=== PATIENT | male | born 1960 | race Caucasian/White ===

== ENCOUNTER 2019-05-14 12:10 | Inpatient (IN) | payer OTHER ==
[~2019-05-14] VITALS: Ht 175.3 cm; Wt 52.2 kg
[2019-05-14] MEDS ORDERED: IV NORMAL SALINE 1000ML BAG 1,000 ML IV ONE (12:30)
[2019-05-14] MEDS ORDERED: methylPREDNISolone SOD SUCC PF 125 MG/2 ML VIAL. IV ONE (12:30)
[2019-05-14] MEDS ORDERED: IPRATRPIUM/ALBUTEROL 0.5/2.5MG 3 ML NEBU. NEB ONE (12:30)
[2019-05-14 12:36] LABS: BASO % 1 % (0-3); EOS % 0 % (0-3); HEMATOCRIT 43.5 % (39.0-53.0); HEMOGLOBIN 14.5 g/dL (13.0-17.5); LYMPH # 0.9 x10^3/uL (1.0-4.8); LYMPH % 13 % (24-48); MEAN CORPUSCULAR HEMOGLOBIN 32 pg (25-35); MEAN CORPUSCULAR HGB CONC 33 g/dL (31-37); MEAN CORPUSCULAR VOLUME 97 fL (79-100); MONO # 1.2 x10^3/uL (0.0-1.1); MONO % 17 % (0-9); NEUT # 4.9 x10^3/uL (1.8-7.7); NEUT % 70 % (31-73); PLATELET COUNT 161 x10^3/uL (140-400); RED BLOOD COUNT 4.47 x10^6/uL (4.30-5.70); RED CELL DISTRIBUTION WIDTH 13.6 % (11.5-14.5)
[2019-05-14 12:40] LABS: CALCIUM 8.6 mg/dL (8.5-10.1); CREATININE 0.9 mg/dL (0.7-1.3); GFR 86.4; POTASSIUM 3.6 mmol/L (3.5-5.1)
[2019-05-14 12:45] LABS: PROTHROMBIN TIME PATIENT 11.5 SEC (11.7-14.0)
[2019-05-14 12:46] LABS: ALBUMIN 3.6 g/dL (3.4-5.0); ALBUMIN/GLOBULIN RATIO 1.2 (1.0-1.7); TOTAL BILIRUBIN 0.3 mg/dL (0.2-1.0); TOTAL PROTEIN 6.7 g/dL (6.4-8.2)
--- NOTE | 2019-05-14 12:50 | RAD ---
PORTABLE CHEST 1V Clinical indications: Shortness of air. COMPARISON: December 17, 2014. Findings: Hyperinflation is seen consistent with COPD. Chronic interstitial lung disease is seen. No new lung infiltrate or pleural effusion or pneumothorax is seen. The heart size, pulmonary vasculature, mediastinum and both josé miguel are unremarkable. . Impression: COPD. No acute radiographic abnormality is seen. Electronically signed by: Esteban Jones MD (05/14/2019 12:47 PM) [facility]
[2019-05-14 12:57] LABS: INFLUENZA A PATIENT POSITIVE (NEGATIVE); INFLUENZA B PATIENT NEGATIVE (NEGATIVE)
--- NOTE | 2019-05-14 12:57 | PHYS DOC ---
Past Medical History Past Medical History: Cancer, COPD, Other Additional Past Medical Histor: bells palsy Past Surgical History: Cancer Surgery, Other Additional Past Surgical Histo: right ankle Smoking Status: Current Every Day Smoker Alcohol Use: None Drug Use: None Adult General Chief Complaint Chief Complaint: SHORTNESS OF BREATH HPI HPI Patient is a 58 year old male with history COPD, lung cancer, smoking, presented to ER today for evaluation of trouble breathing, cough, fever for the last 5 days. Patient is in remission of his TREATMENT. Last chemotherapy was one years ago. Patient continues to smoke, he is not on oxygen at home. Alma ent denies any chest pain. He denies any abdominal pain, no nausea vomiting. Review of Systems Review of Systems Constitutional: POSITIVE FOR fever or chills [] Eyes: Denies change in visual acuity, redness, or eye pain [] HENT: Denies nasal congestion or sore throat [] Respiratory: Positive for cough and shortness of breath [] Cardiovascular: No additional information not addressed in HPI [] GI: Denies abdominal pain, nausea, vomiting, bloody stools or diarrhea [] : Denies dysuria or hematuria [] Musculoskeletal: Denies back pain or joint pain [] Integument: Denies rash or skin lesions [] Neurologic: Denies headache, focal weakness or sensory changes [] Endocrine: Denies polyuria or polydipsia [] All other systems were reviewed and found to be within normal limits, except as documented in this note. Current Medications Current Medications Current Medications Medications (Trade) Dose Ordered Sig/Eugene Start Time Stop Time Status Last Admin Dose Admin Acetaminophen (Tylenol) 650 mg PRN Q4HRS PRN 05/14/19 13:30 05/15/19 13:29 Albuterol/ Ipratropium (Duoneb) 3 ml RTQID 05/14/19 16:00 05/15/19 15:59 Methylprednisolone Sodium Succinate (SOLU-Medrol 125MG VIAL) 125 mg 1X ONCE 05/14/19 12:30 05/14/19 12:31 DC 05/14/19 12:44 125 MG Ondansetron HCl (Zofran) 4 mg PRN Q8HRS PRN 05/14/19 13:30 05/15/19 13:29 Sodium Chloride 1,000 ml @ 75 mls/hr [id number] 05/14/19 13:28 2/23/20 13:27 Allergies Allergies Allergies Coded Allergies Type Severity Reaction Last Updated Verified No Known Drug Allergies 12/17/14 No Physical Exam Physical Exam Constitutional: Well developed, well nourished, mild acute distress, toxic appearance. [] HENT: Normocephalic, atraumatic, bilateral external ears normal, oropharynx moist, no oral exudates, nose normal. [] Eyes: PERRLA, EOMI, conjunctiva normal, no discharge. [] Neck: Normal range of motion, no tenderness, supple, no stridor. [] Cardiovascular: Sinus tachycardia, regular rhythm, no murmur [] Lungs & Thorax: Bilateral breath sounds with moderated inspiratory and expiratory wheezing, tachypnia, in moderate respiratory distress. Abdomen: Bowel sounds normal, soft, no tenderness, no masses, no pulsatile masses. [] Skin: Warm, dry, no erythema, no rash. [] Back: No tenderness, no CVA tenderness. [] Extremities: No tenderness, no cyanosis, no clubbing, ROM intact, no edema. [] Neurologic: Alert and oriented X 3, normal motor function, normal sensory function, no focal deficits noted. [] Psychologic: Affect normal, judgement normal, mood normal. [] Current Patient Data Vital Signs Vital Signs Date Time Temp Pulse Resp B/P (MAP) Pulse Ox O2 Delivery O2 Flow Rate FiO2 05/14/19 12:52 96 Room Air 05/14/19 12:29 98.4 97 20 169/81 (110) 98.4 Lab Values Laboratory Tests Test 05/14/19 12:25 05/14/19 12:26 05/14/19 12:39 White Blood Count 7.0 x10^3/uL (4.0-11.0) Red Blood Count 4.47 x10^6/uL (4.30-5.70) Hemoglobin 14.5 g/dL (13.0-17.5) Hematocrit 43.5 % (39.0-53.0) Mean Corpuscular Volume 97 fL (79-100) Mean Corpuscular Hemoglobin 32 pg (25-35) Mean Corpuscular Hemoglobin Concent 33 g/dL (31-37) Red Cell Distribution Width 13.6 % (11.5-14.5) Platelet Count 161 x10^3/uL (140-400) Neutrophils (%) (Auto) 70 % (31-73) Lymphocytes (%) (Auto) 13 % (24-48) L Monocytes (%) (Auto) 17 % (0-9) H Eosinophils (%) (Auto) 0 % (0-3) Basophils (%) (Auto) 1 % (0-3) Neutrophils # (Auto) 4.9 x10^3/uL (1.8-7.7) Lymphocytes # (Auto) 0.9 x10^3/uL (1.0-4.8) L Monocytes # (Auto) 1.2 x10^3/uL (0.0-1.1) H Eosinophils # (Auto) 0.0 x10^3/uL (0.0-0.7) Basophils # (Auto) 0.0 x10^3/uL (0.0-0.2) Prothrombin Time 11.5 SEC (11.7-14.0) L Prothrombin Time INR 0.9 (0.8-1.1) Activated Partial Thromboplast Time 32 SEC (24-38) Sodium Level 139 mmol/L (136-145) Potassium Level 3.6 mmol/L (3.5-5.1) Chloride Level 97 mmol/L (98-107) L Carbon Dioxide Level 34 mmol/L (21-32) H Anion Gap 8 (6-14) Blood Urea Nitrogen 13 mg/dL (8-26) Creatinine 0.9 mg/dL (0.7-1.3) Estimated GFR (Cockcroft-Gault) 86.4 BUN/Creatinine Ratio 14 (6-20) Glucose Level 115 mg/dL (70-99) H Calcium Level 8.6 mg/dL (8.5-10.1) Total Bilirubin 0.3 mg/dL (0.2-1.0) Aspartate Amino Transferase (AST) 27 U/L (15-37) Alanine Aminotransferase (ALT) 30 U/L (16-63) Alkaline Phosphatase 94 U/L (46-116) Troponin I Quantitative < 0.017 ng/mL (0.000-0.055) Total Protein 6.7 g/dL (6.4-8.2) Albumin 3.6 g/dL (3.4-5.0) Albumin/Globulin Ratio 1.2 (1.0-1.7) Influenza Type A Antigen Positive (NEGATIVE) Influenza Type B Antigen Negative (NEGATIVE) Lactic Acid Level 1.3 mmol/L (0.4-2.0) Laboratory Tests 05/14/19 12:25 Laboratory Tests 05/14/19 12:25 EKG EKG [ekg was done at 1220, rate of 101 BPM, NO STEMI, SINUS TACHYCARDIA Radiology/Procedures Radiology/Procedures [][facility] [address] [place] [address] IMAGING REPORT Signed PATIENT: KATHY DURANT MACCOUNT: [id number] : 1960 LOCATION: ER AGE: 58 SEX: M EXAM STATUS: PRE ER ORD. PHYSICIAN: NEAL WATT DO REASON: SOA PROCEDURE: PORTABLE CHEST 1V PORTABLE CHEST 1V Clinical indications: Shortness of air. COMPARISON: December 17, 2014. Findings: Hyperinflation is seen consistent with COPD. Chronic interstitial lung disease is seen. No new lung infiltrate or pleural effusion or pneumothorax is seen. The heart size, pulmonary vasculature, mediastinum and both josé miguel are unremarkable. . Impression: COPD. No acute radiographic abnormality is seen. Electronically signed by: Kisha Jones MD (05/14/2019 12:47 PM) [facility] DICTATED and SIGNED BY: KISHA JONES MD DATE: 05/14/19 1247 Course & Med Decision Making Course & Med Decision Making Pertinent Labs and Imaging studies reviewed. (See chart for details) Patient is a 58-year-old man who was found to have COPD exacerbation, test positive for influenza A. Patient had been sick for 5 days so he is not candidate for Tamiflu. He was given IV fluid, IV Solu-Medrol, DuoNeb treatment in the ER, he felt a bit better. His saturations still low in the 93% on 2 L. Patient WILL be admitted to hospital for further evaluation and treatment. Dragon Disclaimer Dragon Disclaimer This electronic medical record was generated, in whole or in part, using a voice recognition dictation system. Departure Departure Impression: Primary Impression: COPD exacerbation Additional Impression: Influenza A Disposition: ADMITTED INPATIENT Admitting Physician: Everton, Carmela Condition: STABLE Referrals: CARMELA ANGULO MD (PCP) Problem Qualifiers NEAL WATT DO May 14, 2019 12:57
[2019-05-14] MEDS: IV NORMAL SALINE 1000ML BAG 1,000 ML IV SCH (13:28)
[2019-05-14] MEDS ORDERED: ACETAMINOPHEN 325 MG TABLET. PO PRN (13:30)
[2019-05-14] MEDS ORDERED: ONDANSETRON PF 4 MG/2 ML VIAL. IV PRN (13:30)
--- NOTE | 2019-05-14 15:00 | NUR ---
Admission Note: Pt admitted to room [address] Toscano for COPD exacerbation and Flu A. Oriented to room, unit, call light, and isolation precautions. Hooked up to last bag of IVF from ED (NS @ 75). Skin intact, complaints of pain 11/30, has nottaken his scheduled hydrocodone since 0800 this am. Pt reports taking only meloxicam 15mg PO daily (held by Dr. Toscano d/t current steroid use), and hydrocodone 10/325mg by mouth Q4H (restarted). Started on regular diet. No concerns are this time. In droplet precautions.
[2019-05-14] MEDS ORDERED: HYDR-2769 PO (16:15)
[2019-05-14] MEDS ORDERED: MELO15TA23 PO (16:15)
[2019-05-14] MEDS: IPRATRPIUM/ALBUTEROL 0.5/2.5MG 3 ML NEBU. NEB SCH ×2 (16:48→20:00)
[2019-05-14] MEDS: HYDROcodone/APAP 10/325 1 TAB TABLET PO SCH ×2 (16:59→20:42)
[2019-05-14 19:40] VITALS: BP 117/65
--- NOTE | 2019-05-14 21:34 | EKG ---
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
[2019-05-14 23:35] VITALS: BP 100/65
[2019-05-15] MEDS: IV NORMAL SALINE 1000ML BAG 1,000 ML IV SCH (02:48)
[2019-05-15] MEDS: HYDROcodone/APAP 10/325 1 TAB TABLET PO SCH ×6 (03:16→20:28)
[2019-05-15 03:35] VITALS: BP 107/63
[2019-05-15] MEDS: IPRATRPIUM/ALBUTEROL 0.5/2.5MG 3 ML NEBU. NEB SCH ×4 (07:23→21:05)
[2019-05-15 07:54] VITALS: BP 110/60
[2019-05-15] MEDS ORDERED: ALBUTEROL SULFATE 2.5 MG/3 ML NEBU. NEB PRN (09:15)
--- NOTE | 2019-05-15 09:27 | PDOC ---
Provider Note Provider Note [id number] CARMELA ANGULO MD May 15, 2019 09:27
[2019-05-15] MEDS ORDERED: methylPREDNISolone SOD SUCC PF 40 MG/ML VIAL. IV ONE (09:30)
--- NOTE | 2019-05-15 10:08 | HP ---
ADMIT DATE: CHIEF COMPLAINT: Shortness of breath and flu. HISTORY OF PRESENT ILLNESS: A 58-year-old white male who is undergoing monitoring after treatment for non-small cell lung cancer, is followed by Dr. Rome at after chemotherapy and radiation was completed in 2019. His last scans for about 6 months ago. About 5 days prior to admission, he began feeling weak with cough, shortness of breath, headache and fatigue and started taking fpnh-rmd-[id number] meds. He had increasing shortness of breath in the ER without sputum production, hemoptysis, fever, chills or vomiting and was tested positive for flu. Chest x-ray was clear. He was given a dose of Solu-Medrol and admitted. He is feeling somewhat better at this point with no new symptoms. PAST HISTORY: He takes hydrocodone for chronic nonmalignant pain. He is followed by Dr. Rome and his last surveillance scans for about 6 months ago according to the patient. Exact cell type was not available to me but he has been treated at [facility] for his radiation and chemo. ALLERGIES: No allergies are known. IMMUNIZATION STATUS: Up-to-date. SOCIAL HISTORY: Still smokes about 5 cigarettes a day. He is single. His fiance recently of cervical cancer. He is a nondrinker. 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 FAMILY HISTORY: Unremarkable. REVIEW OF SYSTEMS: No other known problems. OBJECTIVE: ENT: Older than stated age, but otherwise all within normal limits. NECK: No masses, nodes or bruits. LUNGS: Decreased breath sounds, a few scattered expiratory wheezes, reduced breath sounds. No dullness to percussion. No tachypnea. CARDIOVASCULAR: Regular rate. No tachycardia or murmur. ABDOMEN: Benign, soft, nontender. EXTREMITIES: He has very poor pedal pulses bilaterally. Both feet are cool below the ankles. Radial pulses reduced. He has 2-3+ clubbing as well. No edema. No joint or skin lesions. NEUROLOGIC: Physiologic and nonfocal. ASSESSMENT: 1. Influenza A, recovering. 2. Fairly severe chronic obstructive pulmonary disease with secondary dyspnea secondary to the flu. 3. Peripheral arterial disease with progressive claudication in both lower extremities. 4. Chronic tobacco abuse. 5. History of non-small cell lung cancer. PLAN: Another dose of Solu-Medrol today and follow. Likely we will be able to discharge tomorrow. He has appointments with Dr. Rome regarding lung cancer surveillance and with AN[facility]O regarding his vascular status in his lower extremities, though he is not a very good candidate for interventions at this point. He declines a nicotine patch use at this time. We will not use antivirals as the interval for success is past. CARMELA ANGULO MD DR: AKSHAT/deisi JOB#: [id number] / [id number]
[2019-05-15 11:40] VITALS: BP 106/59
[2019-05-15 15:30] VITALS: BP 101/55
[2019-05-15 19:40] VITALS: BP 113/60
[2019-05-15 23:40] VITALS: BP 105/61
[2019-05-16] MEDS: HYDROcodone/APAP 10/325 1 TAB TABLET PO SCH ×3 (00:47→08:12)
[2019-05-16 03:35] VITALS: BP 101/57
[2019-05-16] MEDS: IPRATRPIUM/ALBUTEROL 0.5/2.5MG 3 ML NEBU. NEB SCH (07:11)
[2019-05-16 07:59] VITALS: BP 105/65
--- NOTE | 2019-05-16 08:35 | PDOC ---
Provider Note Provider Note [id number] CARMELA ANGULO MD May 16, 2019 08:35
[2019-05-16] MEDS ORDERED: predniSONE 10 MG TABLET PO ONE (08:45)
--- NOTE | 2019-05-16 09:50 | NUR ---
IP: Pt is influenza + requiring droplet precautions for 7 days and 24 hours without a fever, whichever is longest.
--- NOTE | 2019-05-16 10:08 | DS ---
DATE OF DISCHARGE: 05/16/2019 HOSPITAL SUMMARY: A 58-year-old white male with known lung cancer and COPD, came in with increasing shortness of breath, wheezing and cough. He had flu-like symptoms for 4 or 5 days prior to admission and was positive for type A flu on admission. Chemistry study and CBC were normal and his chest x-ray was clear with COPD changes. He remained afebrile throughout the hospital course and was treated with 2 doses of IV Solu-Medrol, one dose of prednisone and is feeling much better with less dyspnea and also received DuoNeb treatments and tobacco cessation. He is comfortable to be followed as an outpatient at this point. FINAL DIAGNOSES: 1. Influenza A. 2. Chronic obstructive pulmonary disease with exacerbation secondary to influenza A. 3. Peripheral arterial disease, both lower extremities, with intermittent claudication. 4. History of non-small cell lung cancer. OPERATIONS, PROCEDURES, COMPLICATIONS, CONSULTATIONS: None. DISPOSITION: He will take no new medications. Continue tobacco avoidance as much as possible and follow up with Oncology for his lung cancer and he will see [facility] for vascular arterial assessment of his lower extremities. Complete tobacco avoidance was again encouraged for multiple reasons. CARMELA ANGULO MD DR: AKSHAT/nts JOB#: [id number] / [id number]
--- NOTE | 2019-05-16 10:11 | NUR ---
Discharge Note: KATHY DURANT [address] Discharge instructions and discharge home medications reviewed with Patient and a copy given. All questions have been answered and understanding verbalized. The following instructions and handouts were given: follow up instructions. Discontinued lines and drains: 20 gauge left FA, tip intact. patient tolerated well. Patient discharged to home with self care via own vehicle.
== END 2019-05-16 10:10 | disposition home or self-care (01) | DRG 194 ==
LOC: ER 12:10 → 6 SOUTH 13:26 → ER 14:59
PROVIDERS: ADMIT Family Medicine; ATTEND Family Medicine
DX: J10.1 Influenza due to other identified influenza virus with other respiratory manifestations (principal); J44.1 Chronic obstructive pulmonary disease with (acute) exacerbation; G51.0 Bell's palsy; F17.210 Nicotine dependence, cigarettes, uncomplicated; G89.29 Other chronic pain; I73.9 Peripheral vascular disease, unspecified; Z85.118 Personal history of other malignant neoplasm of bronchus and lung
CPT/HCPCS: 36415; 71045; 80053; 83605; 84484; 85025; 85610; 85730; 87040; 87804; 93005; 94640; 94760; J2920; J2930; J7030; J7512; J7620; G0378

== ENCOUNTER 2019-05-17 15:09 | Inpatient (IN) | payer OTHER ==
[~2019-05-17] VITALS: Ht 172.7 cm; Wt 49.0 kg
[~2019-05-17 15:09] MED LIST: HYDR-2769 PO; MELO15TA23 PO
--- NOTE | 2019-05-17 16:27 | PHYS DOC ---
Past Medical History Past Medical History: Cancer, COPD, Other Additional Past Medical Histor: bells palsy Past Surgical History: Cancer Surgery, Other Additional Past Surgical Histo: right ankle Smoking Status: Former Smoker Alcohol Use: None Drug Use: None Adult General Chief Complaint Chief Complaint: SHORTNESS OF BREATH HPI HPI Patient is a 58 year old male who presents with shortness of breath that started early this morning. The patient states he was diagnosed with flu week ago has been having symptoms since then the patient states he was just discharged from hospital yesterday. The patient states that he got to the bathroom this morning is when he started having shortness of breath. He has a history of COPD. He also has a history lung cancer. He last had chemotherapy and radiation a year ago. Review of Systems Review of Systems Constitutional: Denies fever or chills [] Eyes: Denies change in visual acuity, redness, or eye pain [] HENT: Denies nasal congestion or sore throat [] Respiratory: Reports shortness of breath [] Cardiovascular: No additional information not addressed in HPI [] GI: Denies abdominal pain, nausea, vomiting, bloody stools or diarrhea [] : Denies dysuria or hematuria [] Musculoskeletal: Denies back pain or joint pain [] Integument: Denies rash or skin lesions [] Neurologic: Denies headache, focal weakness or sensory changes [] Endocrine: Denies polyuria or polydipsia [] Complete systems were reviewed and found to be within normal limits, except as documented in this note. Current Medications Current Medications Current Medications Medications (Trade) Dose Ordered Sig/Eugene Start Time Stop Time Status Last Admin Dose Admin Albuterol/ Ipratropium (Duoneb) 3 ml 1X ONCE 05/17/19 16:30 05/17/19 16:31 DC 05/17/19 16:40 3 ML Heparin Sodium (Porcine) (Heparin Sodium) 1,300 unit PRN Q6HRS PRN 05/17/19 17:30 Heparin Sodium/ Dextrose 250 ml @ 6.1 mls/hr CONT PRN 05/17/19 17:30 05/17/19 17:58 6.1 MLS/HR Info (CONTRAST GIVEN -- Rx MONITORING) 1 each PRN DAILY PRN 05/17/19 17:30 05/19/19 17:29 Iohexol (Omnipaque 350 Mg/ml) 75 ml 1X ONCE 05/17/19 17:30 05/17/19 17:31 DC Methylprednisolone Sodium Succinate (SOLU-Medrol 125MG VIAL) 125 mg 1X ONCE 05/17/19 16:30 05/17/19 16:31 DC 05/17/19 17:59 125 MG Allergies Allergies Allergies Coded Allergies Type Severity Reaction Last Updated Verified No Known Drug Allergies 12/17/14 No Physical Exam Physical Exam Constitutional: Well developed, well nourished, no acute distress, non-toxic appearance. [] HENT: Normocephalic, atraumatic, bilateral external ears normal, oropharynx moist, no oral exudates, nose normal. [] Eyes: PERRLA, EOMI, conjunctiva normal, no discharge. [] Neck: Normal range of motion, no tenderness, supple, no stridor. [] Cardiovascular:Heart rate regular rhythm, no murmur [] Lungs & Thorax: Bilateral breath sounds clear to auscultation [] Abdomen: Bowel sounds normal, soft, no tenderness, no masses, no pulsatile masses. [] Skin: Warm, dry, no erythema, no rash. [] Back: No tenderness, no CVA tenderness. [] Extremities: No tenderness, no cyanosis, no clubbing, ROM intact, no edema. [] Neurologic: Alert and oriented X 3, normal motor function, normal sensory function, no focal deficits noted. [] Psychologic: Affect normal, judgement normal, mood normal. [] Current Patient Data Vital Signs Vital Signs Date Time Temp Pulse Resp B/P (MAP) Pulse Ox O2 Delivery O2 Flow Rate FiO2 05/17/19 16:41 94 Room Air 05/17/19 15:34 98.0 117 20 119/85 (96) 98.0 Lab Values Laboratory Tests Test 05/17/19 16:10 White Blood Count 9.3 x10^3/uL (4.0-11.0) Red Blood Count 4.26 x10^6/uL (4.30-5.70) L Hemoglobin 13.8 g/dL (13.0-17.5) Hematocrit 41.4 % (39.0-53.0) Mean Corpuscular Volume 97 fL (79-100) Mean Corpuscular Hemoglobin 32 pg (25-35) Mean Corpuscular Hemoglobin Concent 33 g/dL (31-37) Red Cell Distribution Width 14.0 % (11.5-14.5) Platelet Count 277 x10^3/uL (140-400) Neutrophils (%) (Auto) 83 % (31-73) H Lymphocytes (%) (Auto) 6 % (24-48) L Monocytes (%) (Auto) 11 % (0-9) H Eosinophils (%) (Auto) 0 % (0-3) Basophils (%) (Auto) 0 % (0-3) Neutrophils # (Auto) 7.7 x10^3/uL (1.8-7.7) Lymphocytes # (Auto) 0.5 x10^3/uL (1.0-4.8) L Monocytes # (Auto) 1.0 x10^3/uL (0.0-1.1) Eosinophils # (Auto) 0.0 x10^3/uL (0.0-0.7) Basophils # (Auto) 0.0 x10^3/uL (0.0-0.2) Prothrombin Time 12.0 SEC (11.7-14.0) Prothrombin Time INR 0.9 (0.8-1.1) Activated Partial Thromboplast Time 32 SEC (24-38) Sodium Level 141 mmol/L (136-145) Potassium Level 3.7 mmol/L (3.5-5.1) Chloride Level 100 mmol/L (98-107) Carbon Dioxide Level 34 mmol/L (21-32) H Anion Gap 7 (6-14) Blood Urea Nitrogen 12 mg/dL (8-26) Creatinine 0.8 mg/dL (0.7-1.3) Estimated GFR (Cockcroft-Gault) 98.9 BUN/Creatinine Ratio 15 (6-20) Glucose Level 101 mg/dL (70-99) H Lactic Acid Level 1.6 mmol/L (0.4-2.0) Calcium Level 9.2 mg/dL (8.5-10.1) Total Bilirubin 0.3 mg/dL (0.2-1.0) Aspartate Amino Transferase (AST) 21 U/L (15-37) Alanine Aminotransferase (ALT) 28 U/L (16-63) Alkaline Phosphatase 74 U/L (46-116) Troponin I Quantitative 1.314 ng/mL (0.000-0.055) Total Protein 7.0 g/dL (6.4-8.2) Albumin 3.2 g/dL (3.4-5.0) L Albumin/Globulin Ratio 0.8 (1.0-1.7) L Procalcitonin < 0.10 ng/mL (0.00-0.10) Laboratory Tests 05/17/19 16:10 Laboratory Tests 05/17/19 16:10 EKG EKG EKG interpreted by Dr. Barnhart Sinus with rate of 100. No STEMI.[] Radiology/Procedures Radiology/Procedures [][facility] [address] [place] [address] IMAGING REPORT Signed PATIENT: KATHY DURANTCOUNT: [id number] : 1960 LOCATION: ER AGE: 58 SEX: M EXAM STATUS: REG ER ORD. PHYSICIAN: DARIEN BERMEO APRN REASON: shortness of breath PROCEDURE: CHEST PA & LATERAL Chest, PA and Lateral: Technique: PA and lateral views of the chest were obtained. History: Shortness of breath. Comparison: 05/14/2019. Findings: The cardiomediastinal silhouette grossly appears unremarkable. Hyperinflated lungs likely changes of COPD. . The pleural margins are clear. Impression: Changes of COPD again identified.. Electronically signed by: Martin Morgan MD (05/17/2019 5:25 PM) [id number] DICTATED and SIGNED BY: MARTIN MORGAN MD DATE: 05/17/191724 Course & Med Decision Making Course & Med Decision Making Pertinent Labs and Imaging studies reviewed. (See chart for details) Will get labs, EKG, chest x-ray, and give supportive care. Initial troponin came back 1.314. Discussed with Dr. Lowe at [address]. [address] on Heparin. Will order CT angio of chest to rule out PE. Discussed case with Dr. Angulo who accepts admission to hospital. CT shows no PE but shows pneumonia. Will order Vanc/Zosyn. Dragon Disclaimer Dragon Disclaimer This electronic medical record was generated, in whole or in part, using a voice recognition dictation system. Departure Departure Impression: Primary Impression: NSTEMI (non-ST elevated myocardial infarction) Additional Impression: Pneumonia Disposition: 09 ADMITTED INPATIENT Admitting Physician: Carmela Angulo Condition: CRITICAL Referrals: CARMELA ANGULO MD (PCP) The HEART Score for CP Pts HEART Score for Chest Pain: HEART Score for Chest Pain Response (Comments) Value History Highly Suspicious 2 ECG Normal 0 Age >45 - < 65 1 Risk Factors >3 Risk Factors or Hx CAD 2 Troponin >3 x Normal Limit 2 Total 7 Risk Factors: Risk Factors: DM, Current or recent (<one month) smoker, HTN, HLP, family history of CAD, obesity. Risk Scores: Score 0 - 3: 2.5% MACE over next 6 weeks - Discharge Home Score 4 - 6: 20.3% MACE over next 6 weeks - Admit for Clinical Observation Score 7 - 10: 72.7% MACE over next 6 weeks - Early Invasive Strategies Problem Qualifiers Additional Impression: Pneumonia Pneumonia type: due to unspecified organism Laterality: right Lung location: upper lobe of lung Qualified Codes: J18.9 - Pneumonia, unspecified organism DARIEN BERMEO APRN May 17, 2019 16:27
[2019-05-17] MEDS ORDERED: IPRATRPIUM/ALBUTEROL 0.5/2.5MG 3 ML NEBU. NEB ONE (16:30)
[2019-05-17] MEDS ORDERED: methylPREDNISolone SOD SUCC PF 125 MG/2 ML VIAL. IV ONE (16:30)
[2019-05-17 16:32] LABS: BASO % 0 % (0-3); EOS % 0 % (0-3); HEMATOCRIT 41.4 % (39.0-53.0); HEMOGLOBIN 13.8 g/dL (13.0-17.5); LYMPH # 0.5 x10^3/uL (1.0-4.8); LYMPH % 6 % (24-48); MEAN CORPUSCULAR HEMOGLOBIN 32 pg (25-35); MEAN CORPUSCULAR HGB CONC 33 g/dL (31-37); MEAN CORPUSCULAR VOLUME 97 fL (79-100); MONO % 11 % (0-9); NEUT # 7.7 x10^3/uL (1.8-7.7); NEUT % 83 % (31-73); PLATELET COUNT 277 x10^3/uL (140-400); RED BLOOD COUNT 4.26 x10^6/uL (4.30-5.70); WHITE BLOOD COUNT 9.3 x10^3/uL (4.0-11.0)
[2019-05-17 16:53] LABS: CALCIUM 9.2 mg/dL (8.5-10.1); CREATININE 0.8 mg/dL (0.7-1.3); GFR 98.9; POTASSIUM 3.7 mmol/L (3.5-5.1)
[2019-05-17 16:57] LABS: ALBUMIN 3.2 g/dL (3.4-5.0); ALBUMIN/GLOBULIN RATIO 0.8 (1.0-1.7); TOTAL BILIRUBIN 0.3 mg/dL (0.2-1.0)
--- NOTE | 2019-05-17 17:27 | RAD ---
Chest, PA and Lateral: Technique: PA and lateral views of the chest were obtained. History: Shortness of breath. Comparison: 05/14/2019. Findings: The cardiomediastinal silhouette grossly appears unremarkable. Hyperinflated lungs likely changes of COPD. . The pleural margins are clear. Impression: Changes of COPD again identified.. Electronically signed by: Martin Morgan MD (05/17/2019 5:25 PM) [id number]
[2019-05-17] MEDS ORDERED: IOHEXOL 350 MG/ML 100 ML VIAL. IV ONE (17:30)
[2019-05-17] MEDS ORDERED: CONTRAST GIVEN. MC PRN (17:30)
[2019-05-17] MEDS ORDERED: HEPARIN for IV BOLUS 10,000 UNIT/10 ML VIAL. IV ONE (17:30)
[2019-05-17] MEDS ORDERED: HEPARIN 25,000UTS/250ML PREMIX 250 ML IV PRN (17:30)
[2019-05-17] MEDS ORDERED: ONDANSETRON PF 4 MG/2 ML VIAL. IV PRN (17:45)
--- NOTE | 2019-05-17 18:30 | RAD ---
Examination: CT angiography chest HISTORY: History of tachycardia, shortness of breath COMPARISON: CT chest from 02/19/2016 TECHNIQUE: Axial CT and radiographic images of chest were performed with IV contrast. Coronal and sagittal 3-D MIP reformats are performed. Exposure: One or more of the following individualized dose reduction techniques were utilized for this examination: 1. Automated exposure control 2. Adjustment of the mA and/or kV according to patient size 3. Use of iterative reconstruction technique FINDINGS: The central airways are patent. The ascending aorta measures 2.7 cm in transverse dimension. The heart size grossly appears unremarkable There is no evidence of filling defect identified in the main pulmonary arterial trunk and right and left main pulmonary arteries and the visualized lobar, segmental branches of the pulmonary arteries. Severe bilateral lung emphysematous changes. There are patchy tree-in-bud airspace opacities identified in the bilateral lungs involving the right middle lobe, bibasilar lungs likely infiltrates or pneumonia. There is mild soft tissue thickening identified in the left hilar region measuring 1.6 cm. The liver, spleen, adrenals grossly appears unremarkable. Moderate degenerative changes thoracic spine. IMPRESSION: 1. No evidence of pulmonary embolism. 2. Patchy tree-in-bud airspace opacities identified in the right upper lobe, bibasilar lungs likely infiltrates or pneumonia. 3. Severe bilateral lung emphysematous changes. 4. Mild soft tissue thickening identified in the left hilar region, nonspecific could be lymph node or mass. Recommend PET/CT scan for better evaluation. Electronically signed by: Martin Morgan MD (05/17/2019 6:27 PM) [id number]
[2019-05-17] MEDS ORDERED: VANCOMYCIN 1.25 GM in IV NORMAL SALINE 500ML BAG 500 ML IV ONE (18:45)
[2019-05-17] MEDS ORDERED: PIPERACILLIN/TAZOBACTAM 3.375 GM in IV NORMAL SALINE 50ML 50 ML IV ONE (18:45)
[2019-05-17] MEDS: MORPHINE SULFATE 2 MG/ML VIAL. IV PRN ×2 (18:49→22:16)
[2019-05-17 20:45] VITALS: BP 107/74
[2019-05-17] MEDS ORDERED: IOHEXOL 350 MG/ML 100 ML VIAL. ONE (22:21)
[2019-05-17 23:00] VITALS: BP 86/60
[2019-05-18] VITALS (15 sets, daily range): BP systolic 81–124; BP diastolic 50–76
[2019-05-18] MEDS: MORPHINE SULFATE 2 MG/ML VIAL. IV PRN ×4 (01:15→11:50)
[2019-05-18] MEDS: HEPARIN for IV BOLUS 10,000 UNIT/10 ML VIAL. IV PRN ×2 (01:17→08:57)
[2019-05-18 05:26] LABS: HEMATOCRIT 39.2 % (39.0-53.0); RED BLOOD COUNT 4.01 x10^6/uL (4.30-5.70); RED CELL DISTRIBUTION WIDTH 14.1 % (11.5-14.5); WHITE BLOOD COUNT 6.6 x10^3/uL (4.0-11.0)
--- NOTE | 2019-05-18 06:00 | EKG ---
[facility] [address] [place] [address] Test Date: 2019-05-17 Test Time: 17:00:44 Pat Name: KATHY DURANT Department: Room: Gender: M Negative Developer: : 1960 Requested By: DARIEN BERMEO Order Number: [id number] Reading MD: Measurements Intervals Newton Rate: 100 P: 68 MN: 106 QRS: 77 QRSD: 86 T: 88 QT: 332 QTc: 431 Interpretive Statements SINUS RHYTHM ATRIAL PREMATURE COMPLEX(ES) NO SPECIFIC ECG ABNORMALITIES RI6.01 No previous ECG available for comparison
[2019-05-18] MEDS ORDERED: VENTOLIN HFA18 GM INH (07:15)
--- NOTE | 2019-05-18 08:46 | PDOC ---
Provider Note Provider Note [id number] CARMELA ANGULO MD May 18, 2019 08:45
--- NOTE | 2019-05-18 09:05 | HP ---
ADMIT DATE: 05/17/2019 CHIEF COMPLAINT: Shortness of breath. HISTORY OF PRESENT ILLNESS: A 58-year-old white male who has known severe COPD and chronic tobacco abuse and has been treated with chemotherapy and radiation therapy for non-small cell lung cancer at [facility] and follow up there. He was in the hospital 2-3 days ago for onset of shortness of breath associated with influenza A, but got well quickly and felt better. Troponin at that time was negative. Chest x-ray showed no acute change and EKG had no change. He went home on no new medicines, but the next day he had increasing shortness of breath abruptly without overt chest pain and came back in, at this time his troponin is elevated x 3. He has no history of coronary artery disease or any evaluation of that in to my knowledge where he is. He does not have exertional chest pain, though he has exertional dyspnea, which is not new. PAST HISTORY: MEDICATIONS: Listed per the chart. ALLERGIES: No allergies are noted. Followed at [facility] for Oncology. SOCIAL HISTORY: Still smokes slightly. Single. 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 FAMILY HISTORY: Unremarkable. REVIEW OF SYSTEMS: No other known problems. OBJECTIVE: ENT: Unremarkable. NECK: No bruits, nodes or masses. LUNGS: Decreased breath sounds without wheezes. CARDIOVASCULAR: Regular rate. Distant heart tones. No murmur. ABDOMEN: Soft, benign and nontender. EXTREMITIES: 2+ clubbing. Pedal pulses diminished. No joint or skin lesions. Skin turgor diminished. NEUROLOGIC: Physiologic. ASSESSMENT: Evidence of non-ST elevation myocardial infarction with elevated troponin x 3. Risk factors for coronary artery disease include primarily chronic tobacco abuse and secondary chronic obstructive pulmonary disease. Recent influenza A appears to be resolved. He also has a history of non-small cell lung cancer, uncertain stage that is stable at this time. PLAN: Cardiac evaluation and likely will need a cardiac catheterization. CARMELA ANGULO MD DR: AKSHAT/deisi JOB#: [id number] / [id number]
[2019-05-18] MEDS ORDERED: ANTI-COAG MONITOR BY PHARMACY. MC PRN (09:15)
--- NOTE | 2019-05-18 09:53 | PDOC2 ---
CARDIAC CONSULT DATE OF CONSULT Date of Consult DATE: 05/18/19 TIME: 09:33 REASON FOR CONSULT Reason for Consult: NSTEMI REFERRING PHYSICIAN Referring Physician: Alexandr SOURCE Source: Chart review, Patient HISTORY OF PRESENT ILLNESS HISTORY OF PRESENT ILLNESS This is a pleasant 58 yo female admitted for complains of chest pain and SOA. He was just discharge on 05/16 and was treated at that time for COPD. He was als o + for the flu and no tamiflu was noted for treatment. Reports that his SOA started happening after he got discharge and blames it on panic attacks. Reports of palpitations and chest pressure. He could not tell me exactly the duration since he felt panic when he starts having chest pressure. No nausea or vomiting. No recent falls or injury. Denies any home O2 but complies with his COPD treatment. He has lung CA and currently in remission. Reports no coughing. No leg edema but has pain to his legs intermittently but notable pulses to both extremities and and no wounds. PAST MEDICAL HISTORY Cardiovascular: No pertinent hx Pulmonary: COPD CENTRAL NERVOUS SYSTEM: Other (No pertinent history) Heme/Onc: Cancer (lung) Hepatobiliary: No pertinent hx Psych: Anxiety Musculoskeletal: Osteoarthritis Rheumatologic: No pertinent hx Infectious disease: No pertinent hx ENT: No pertinent hx Renal/: No pertinent hx Endocrine: No pertinent hx Dermatology: No pertinent hx PAST SURGICAL HISTORY Past Surgical History: Arthroscopy (right ankle surgery) FAMILY HISTORY Family History: Heart Disease (father) SOCIAL HISTORY Smoke: <1 pack per day ALCOHOL: none Drugs: None Lives: with Family CURRENT MEDICATIONS CURRENT MEDICATIONS Current Medications Medications (Trade) Dose Ordered Sig/Eugene Route PRN Reason Start Time Stop Time Status Last Admin Dose Admin Methylprednisolone Sodium Succinate (SOLU-Medrol 125MG VIAL) 125 mg 1X ONCE IV 05/17/19 16:30 05/18/19 08:55 DC 05/17/19 17:59 Albuterol/ Ipratropium (Duoneb) 3 ml 1X ONCE NEB 05/17/19 16:30 05/17/19 16:31 DC 05/17/19 16:40 Heparin Sodium (Porcine) (Heparin Sodium) 3,050 unit 1X ONCE IV 05/17/19 17:30 05/17/19 17:34 DC 05/17/19 18:01 Heparin Sodium/ Dextrose 250 ml @ 6.1 mls/hr CONT PRN IV PER PROTOCOL 05/17/19 17:30 05/17/19 17:58 Heparin Sodium (Porcine) (Heparin Sodium) 1,300 unit PRN Q6HRS PRN IV FOR UFH LEVEL LESS THAN 0.2 05/17/19 17:30 05/18/19 08:57 Morphine Sulfate (Morphine Sulfate) 2 mg PRN Q2HR PRN IV PAIN 05/17/19 17:45 05/18/19 17:44 05/18/19 09:25 Vancomycin HCl 1.25 gm/Sodium Chloride 500 ml @ 250 mls/hr 1X ONCE IV 05/17/19 18:45 05/18/19 08:55 DC 05/17/19 22:16 Piperacillin Sod/ Tazobactam Sod 3.375 gm/Sodium Chloride 50 ml @ 100 mls/hr 1X ONCE IV 05/17/19 18:45 05/18/19 08:55 DC 05/17/19 22:15 Aspirin (Memo Aspirin) 325 mg DAILYWBKFT PO 05/18/19 10:00 05/18/19 09:25 ALLERGIES ALLERGIES: Coded Allergies: No Known Drug Allergies (Unverified , 12/17/14) ROS Review of System 14 point ROS evaluated with pertinent positives noted per HPI PHYSICAL EXAM General: Alert, Oriented X3, Cooperative, No acute distress HEENT: Atraumatic, Mucous membr. moist/pink Lungs: Other (diminished with faint wheeze) Heart: Regular rate (SR), Normal S1, Normal S2, No murmurs Abdomen: Soft, No tenderness Extremities: No cyanosis, No edema Skin: No breakdown Neuro: Normal speech, Sensation intact Psych/Mental Status: Mental status NL, Mood NL MUSCULOSKELETAL: Osteoarthritic changes both hands VITALS/I&O VITALS/I&O: Vital Signs Date Time Temp Pulse Resp B/P (MAP) Pulse Ox O2 Delivery O2 Flow Rate FiO2 05/18/19 09:25 100 Room Air 05/18/19 08:00 2.0 05/18/19 07:39 97.6 61 20 91/63 (72) 97.6 I & O 05/17/19 05/17/19 05/18/19 15:00 23:00 07:00 Intake Total 600 ml Output Total 590 ml Balance 10 ml LABS Lab: Laboratory Tests Test 05/17/19 16:10 05/17/19 18:05 05/17/19 21:22 05/18/19 00:10 White Blood Count 9.3 x10^3/uL (4.0-11.0) Red Blood Count 4.26 x10^6/uL (4.30-5.70) L Hemoglobin 13.8 g/dL (13.0-17.5) Hematocrit 41.4 % (39.0-53.0) Mean Corpuscular Volume 97 fL (79-100) Mean Corpuscular Hemoglobin 32 pg (25-35) Mean Corpuscular Hemoglobin Concent 33 g/dL (31-37) Red Cell Distribution Width 14.0 % (11.5-14.5) Platelet Count 277 x10^3/uL (140-400) Neutrophils (%) (Auto) 83 % (31-73) H Lymphocytes (%) (Auto) 6 % (24-48) L Monocytes (%) (Auto) 11 % (0-9) H Eosinophils (%) (Auto) 0 % (0-3) Basophils (%) (Auto) 0 % (0-3) Neutrophils # (Auto) 7.7 x10^3/uL (1.8-7.7) Lymphocytes # (Auto) 0.5 x10^3/uL (1.0-4.8) L Monocytes # (Auto) 1.0 x10^3/uL (0.0-1.1) Eosinophils # (Auto) 0.0 x10^3/uL (0.0-0.7) Basophils # (Auto) 0.0 x10^3/uL (0.0-0.2) Prothrombin Time 12.0 SEC (11.7-14.0) Prothrombin Time INR 0.9 (0.8-1.1) Activated Partial Thromboplast Time 32 SEC (24-38) Sodium Level 141 mmol/L (136-145) Potassium Level 3.7 mmol/L (3.5-5.1) Chloride Level 100 mmol/L (98-107) Carbon Dioxide Level 34 mmol/L (21-32) H Anion Gap 7 (6-14) Blood Urea Nitrogen 12 mg/dL (8-26) Creatinine 0.8 mg/dL (0.7-1.3) Estimated GFR (Cockcroft-Gault) 98.9 BUN/Creatinine Ratio 15 (6-20) Glucose Level 101 mg/dL (70-99) H Lactic Acid Level 1.6 mmol/L (0.4-2.0) Calcium Level 9.2 mg/dL (8.5-10.1) Total Bilirubin 0.3 mg/dL (0.2-1.0) Aspartate Amino Transferase (AST) 21 U/L (15-37) Alanine Aminotransferase (ALT) 28 U/L (16-63) Alkaline Phosphatase 74 U/L (46-116) Troponin I Quantitative 1.314 ng/mL (0.000-0.055) 1.055 ng/mL (0.000-0.055) 0.782 ng/mL (0.000-0.055) Total Protein 7.0 g/dL (6.4-8.2) Albumin 3.2 g/dL (3.4-5.0) L Albumin/Globulin Ratio 0.8 (1.0-1.7) L Procalcitonin < 0.10 ng/mL (0.00-0.10) Heparin Anti-Xa Act, Unfractionated < 0.10 IU/mL (0.30-0.70) L Test 05/18/19 05:07 White Blood Count 6.6 x10^3/uL (4.0-11.0) Red Blood Count 4.01 x10^6/uL (4.30-5.70) L Hemoglobin 13.0 g/dL (13.0-17.5) Hematocrit 39.2 % (39.0-53.0) Mean Corpuscular Volume 98 fL (79-100) Mean Corpuscular Hemoglobin 32 pg (25-35) Mean Corpuscular Hemoglobin Concent 33 g/dL (31-37) Red Cell Distribution Width 14.1 % (11.5-14.5) Platelet Count 246 x10^3/uL (140-400) Heparin Anti-Xa Act, Unfractionated 0.11 IU/mL (0.30-0.70) L Laboratory Tests 05/17/19 16:10 05/18/19 05:07 Laboratory Tests 05/17/19 16:10 ASSESSMENT/PLAN ASSESSMENT/PLAN 1. NSTEMI: peaked at 1.3, typical features 2. COPD with hx of lung CA: in remission 3. Recent flu: no tamiflu noted given at that time 4. Tobaccoism 5. Anxiety with palpitations 6. LE pain: possibly neurogenic, no wounds palpable DP Recommendations 1. Flu test 2. ASA, heparin drip ongoing. [facility] today, risks and benefits discussed, agreeable to proceed. 3. EKG TTE. lipids. Monitor rhythm 4. Ischemic w/u 5. Smoking cessation 6. Will consider for arterial duplex. GLENDY BRANDON WARDROBE CONSULTANT May 18, 2019 09:53
[2019-05-18] MEDS ORDERED: ASPIRIN 325 MG TABLET PO SCH (10:00)
[2019-05-18 10:09] LABS: CHOLESTEROL/HDL RATIO 2.6
--- NOTE | 2019-05-18 10:14 | EKG ---
[facility] [address] [place] [address] Test Date: 2019-05-18 Test Time: 10:04:35 Pat Name: KATHY DURANT Department: Room: 211 1 Gender: M Manager Commodities: : 1960 Requested By: GLENDY BRANDON Order Number: [id number] Reading MD: Measurements Intervals Sherrill Rate: 66 P: 67 VT: 110 QRS: 57 QRSD: 80 T: 235 QT: 436 QTc: 459 Interpretive Statements SINUS RHYTHM T ABNORMALITY IN ANTEROLATERAL LEADS INFEROLATERAL LEADS ABNORMAL ECG RI6.02 Compared to ECG 12/17/2014 14:30:59 T-wave abnormality now present
[2019-05-18 10:33] LABS: INFLUENZA A PATIENT NEGATIVE (NEGATIVE); INFLUENZA B PATIENT NEGATIVE (NEGATIVE)
--- NOTE | 2019-05-18 12:19 | NUR ---
SS following up with discharge planning. SS reviewed pt chart. Pt is from home. SS will continue to follow for discharge planning.
[2019-05-18] MEDS ORDERED: LIDOCAINE 1% Multi-Dose 20 ML VIAL. ONE (12:42)
[2019-05-18] MEDS ORDERED: MIDAZOLAM HCL/PF 2 MG/2 ML VIAL. ONE (13:01)
[2019-05-18] MEDS ORDERED: fentaNYL PF VIAL 100 MCG/2 ML VIAL ONE (13:01)
--- NOTE | 2019-05-18 13:06 | PDOC ---
MODERATE SEDATION ASSESSMENT RISKS/ALTERNATIVES Risks/Alternatives Risks and alternatives of this type of sedation and procedure discussed with: RISK/ALTERNATIVES: Patient H & P ON CHART H & P H & P on chart and reviewed for co-morbid conditions and appropriate labs. H&P ON CHART: Yes STATUS PREG STATUS ASSESSED: N/A MEDS/ALLERGIES REVIEWED Meds/Allergies Reviewed Medications and Allergies including time and route of recently administered narcotics and sedatives. MEDS/ALLERGIES REVIEWED: Yes ASA RATING ASA RATING: II AIRWAY ASSESSMENT Airway Assessment Airway patency, oral function limitations, presence of caps, crowns, dentures, partials, and ability to extend neck assessed. AIRWAY ASSESSMENT: Yes MALLAMPATI SCORE MALLAMPATI SCORE: II PRE-SEDATION ASSESSMENT PRE-SEDATION ASSESSMENT: Yes KARLI VELARDE MD May 18, 2019 13:06
[2019-05-18] MEDS ORDERED: IODIXANOL 320 MG/ML 100 ML VIAL. ONE (13:07)
[2019-05-18] MEDS ORDERED: IODIXANOL 320 MG/ML 100 ML VIAL. IART ONE (13:15)
[2019-05-18] MEDS ORDERED: fentaNYL PF VIAL 100 MCG/2 ML VIAL IV ONE (13:15)
[2019-05-18] MEDS ORDERED: MIDAZOLAM HCL/PF 2 MG/2 ML VIAL. IV ONE (13:15)
[2019-05-18] MEDS ORDERED: LIDOCAINE 1% Multi-Dose 20 ML VIAL. INJ ONE (13:15)
--- NOTE | 2019-05-18 15:01 | CARD ---
MR#: [id number] Date of Study: 05/18/2019 Ordering Physician: GLENDY BRANDON, Referring Physician: GLENDY BRANDON, Erica: SOUMYA BARRERA RTR APPROVED REPORT Procedures Left heart catheterization Left ventriculogram Selective coronary angiogram The patient is a 58-year-old male who presented through the emergency room with chest pain. Patient h ad a mild elevation in troponin. He also had episodes of shortness of breath. He had nonspecific ST-T wave changes and n this setting a cardiac catheterization was recommended. Risks and benefits were d iscussed the patient. He agreed to proceed. Of note the patient has a history of lung cancer treated with chemotherapy and radiation treatment as per report. After informed consent was obtained the patient was brought to the heart catheterization lab. The are a of the left femoral artery was prepared the usual manner with Betadine, sterile draping and local a nesthetic since it had a better pulse and on the right. An 18-gauge needle was used to enter the left femoral artery, a wire placed and a 6 Finnish sheath placed over the wire. A 6 Finnish JL4 diagnostic catheter was used to engage left coronary system and sequential injections in various views were obta ined. A 6 Finnish Satnam right catheter was used for injections of the right coronary artery with se quential views. A pigtail catheter was advanced to the left ventricle. A 30 BARROS left ventriculogram was performed. Patient had an episode of VT during the injection but this resolved once the injection was completed. All exchanges were over a J-wire. The catheter was removed from the patient. The sevilla th was removed and hemostasis was obtained via direct pressure. There were no immediate complications . Findings. Hemodynamics. Left ventricular pressure of 90/10, 20. Aortic root pressure 88/62. Coronaries. Left main. The left main was a normal-size vessel with a 20-25% lesion. Left anterior descending. The LAD was a moderate to moderately large vessel that extending around the apex. There was a mid 20% lesion. Left circumflex. Left circumflex is a moderate size dominant vessel with no lesions. ] Right coronary artery. The right coronary was a small nondominant vessel with no lesions. Left ventriculogram. The left ventricle had severe hypokinesis in the anterior, apical and distal inferior cruz. Ejection fraction was estimated at 25%. <Conclusion> Mild coronary artery disease. Significantly decreased LV systolic function. Moderate sedation. 50 minutes. Flow time. 2.6 minutes. Dose. 144 GYCM2 Contrast. 99 mL of VISI. Signed by : Otilio Meza MD Electronically Approved : 05/18/2019 15:01:07
[2019-05-18] MEDS ORDERED: IV NORMAL SALINE 1000ML BAG 1,000 ML IV SCH (15:06)
--- NOTE | 2019-05-18 15:13 | NUR ---
RN NOTE cardiac rehab referral sent. patient notified.
[2019-05-18] MEDS ORDERED: 0.9 % SODIUM CHLORIDE 10 ML DISP.SYRIN. IV PRN (15:15)
[2019-05-18] MEDS ORDERED: NITROGLYCERIN SUBLINGUAL 0.4 MG BOTTLE OF 25. SL PRN (15:15)
--- NOTE | 2019-05-18 15:58 | CARD ---
MR#: [id number] Date of Study: 05/18/2019 Ordering Physician: CARMELA ANGULO, Referring Physician: CARMELA ANGULO, Tech: Sandor Blair RDCS APPROVED REPORT EXAM: Two-dimensional and M-mode echocardiogram with Doppler and color Doppler. Other Information Quality : AverageHR: 92bpm Rhythm : NSRTechnically limited study due to patient laying flat, post-cath INDICATION COPD Chest Pain 2D DIMENSIONS RVDd2.6 (2.9-3.5cm)Left Atrium(2D)2.8 (1.6-4.0cm) IVSd0.7 (0.7-1.1cm)Aortic Root(2D)2.6 (2.0-3.7cm) LVDd4.2 (3.9-5.9cm)LVOT Diameter2.0 (1.8-2.4cm) PWd0.7 (0.7-1.1cm)LVDs3.4 (2.5-4.0cm) FS (%) 17.6 %SV28.9 ml LVEF(%)37.1 (>50%) Aortic Valve AoV Peak Amos.101.6cm/Scarlet Peak GR.4.1mmHg LVOT Peak Amos.84.0cm/sAVA (VMAX)2.54cm2 Mitral Valve MV E Ersengab27.0cm/sMV DECEL LJGQ149ak MV A Joswoeoq93.2cm/sE/A Ratio1.4 Pulmonary Valve PV Peak Kcbemzkt550.5cm/s Tricuspid Valve TR P. Jsepquzg120as/sRAP RDRBGNTX4mdKa TR Peak Gr.04lgWuPFDL36orBu LEFT VENTRICLE The left ventricle is normal size. There is normal left ventricular wall thickness. Severe hypokinesi s of mid to distal myocardial segments and apical wall, pattern consistent with Takotsubo's cardiomyo piedad. The Ejection Fraction is 25%. Transmitral Doppler flow pattern is Grade II-pseudonormal fillin g dynamics. There is no ventricular septal defect visualized. RIGHT VENTRICLE The right ventricle is normal size. The right ventricular systolic function is normal. ATRIA The left atrium size is normal. The right atrium size is normal. The interatrial septum is intact wit h no evidence for an atrial septal defect or patent foramen ovale as noted on 2-D or Doppler imaging. AORTIC VALVE The aortic valve is normal in structure and function. Doppler and Color Flow revealed no significant aortic regurgitation. There is no significant aortic valvular stenosis. MITRAL VALVE The mitral valve is normal in structure and function. There is no evidence of mitral valve prolapse. There is no mitral valve stenosis. Doppler and Color Flow revealed no mitral valve regurgitation note d. TRICUSPID VALVE The tricuspid valve is normal in structure and function. Doppler and Color Flow revealed trace tricus pid regurgitation. PA pressure is estimated at 37 mmHg. There is no tricuspid valve stenosis. PULMONIC VALVE The pulmonary valve is normal in structure and function. Doppler and Color Flow revealed no pulmonic valvular regurgitation. There is no pulmonic valvular stenosis. GREAT VESSELS The aortic root is normal in size. The ascending aorta is normal in size. The pulmonary artery is nor mal. The IVC is normal in size and collapses >50% with inspiration. PERICARDIAL EFFUSION There is no pleural effusion. There is no evidence of significant pericardial effusion. Critical Notification Critical Value: No <Conclusion> Severe hypokinesis of mid to distal myocardial segments and apical wall, pattern consistent with Tako tsubo's cardiomyopathy. The Ejection Fraction is 25%. Trace tricuspid regurgitation. PA pressure is estimated at 37 mmHg. There is no evidence of significant pericardial effusion. Signed by : Charly Elena, Electronically Approved : 05/18/2019 15:57:52
[2019-05-18] MEDS: HYDROcodone/APAP 10/325 1 TAB TABLET PO PRN ×2 (16:54→20:59)
[2019-05-19] MEDS: HYDROcodone/APAP 10/325 1 TAB TABLET PO PRN ×6 (01:08→21:18)
[2019-05-19 03:37] VITALS: BP 102/63
[2019-05-19 04:21] LABS: BASO % 1 % (0-3); EOS % 0 % (0-3); HEMATOCRIT 37.5 % (39.0-53.0); HEMOGLOBIN 12.5 g/dL (13.0-17.5); LYMPH # 0.7 x10^3/uL (1.0-4.8); LYMPH % 8 % (24-48); MEAN CORPUSCULAR HEMOGLOBIN 32 pg (25-35); MEAN CORPUSCULAR HGB CONC 33 g/dL (31-37); MEAN CORPUSCULAR VOLUME 97 fL (79-100); MONO % 10 % (0-9); NEUT # 7.8 x10^3/uL (1.8-7.7); NEUT % 82 % (31-73); PLATELET COUNT 261 x10^3/uL (140-400); RED BLOOD COUNT 3.85 x10^6/uL (4.30-5.70); RED CELL DISTRIBUTION WIDTH 14.1 % (11.5-14.5); WHITE BLOOD COUNT 9.6 x10^3/uL (4.0-11.0)
[2019-05-19 04:38] LABS: CALCIUM 8.3 mg/dL (8.5-10.1); CREATININE 0.8 mg/dL (0.7-1.3); GFR 98.9; POTASSIUM 3.9 mmol/L (3.5-5.1)
--- NOTE | 2019-05-19 06:52 | NUR ---
IN THE NIGHT PT'S LEFT GROIN SITE HAD A VERY SMALL AMT OF BLOOD GOING DOWN THE CREASE. REMOVED THE DRESSING CLEANSED AROUND PUNCTURE SITES AND PLACED V PAD AND TRANSPARENT OVER VPAD. AND HAD PT LAY FLAT THROUGH OUT THE NIGHT. at the begining of the shift last night pt had his knees up to his chest. askd him not to do that. lcrn
[2019-05-19 07:25] VITALS: BP 108/74
--- NOTE | 2019-05-19 09:16 | PDOC ---
Provider Note Provider Note discussed dilated CM and needed meds, has lower bp so will follow here today re new meds, poss dc in am when doses tolerated- discussed needed tobacco cessation also CARMELA ANGULO MD May 19, 2019 09:16
[2019-05-19] MEDS: ASPIRIN ENTERIC COATED 81 MG TABLET.DR. PO SCH (09:24)
[2019-05-19] MEDS: LISINOPRIL 5 MG TABLET. PO SCH (09:24)
[2019-05-19] MEDS: CLOPIDOGREL BISULFATE 75 MG TABLET PO SCH (09:25)
[2019-05-19] MEDS: METOPROLOL SUCC 24HR ER 25 MG TAB.ER.24H. PO SCH (09:25)
[2019-05-19 10:36] VITALS: BP 110/74
--- NOTE | 2019-05-19 13:52 | PDOC ---
GLENDY BRANDON AQUATIC CENTRE MANAGER 05/19/19 1352: CARDIO Progress Notes Date and Time Date of Service 05/19/2019 Time of Evaluation 1330 Subjective Subjective: No Chest Pain, No shortness of breath, No Palpitations Vitals Vitals Vital Signs Date Time Temp Pulse Resp B/P (MAP) Pulse Ox O2 Delivery O2 Flow Rate FiO2 05/19/19 13:42 95 Room Air 05/19/19 10:36 97.9 71 20 110/74 (86) 97.9 05/18/19 14:06 Weight Weight [ ] Input and Output Intake and Output Intake and Output 05/19/19 07:00 Intake Total 600 ml Output Total 500 ml Balance 100 ml Intake Oral 600 ml Output Urine Total 500 ml Laboratory Labs Laboratory Tests Test 05/19/19 04:11 White Blood Count 9.6 x10^3/uL (4.0-11.0) Red Blood Count 3.85 x10^6/uL (4.30-5.70) Hemoglobin 12.5 g/dL (13.0-17.5) Hematocrit 37.5 % (39.0-53.0) Mean Corpuscular Volume 97 fL (79-100) Mean Corpuscular Hemoglobin 32 pg (25-35) Mean Corpuscular Hemoglobin Concent 33 g/dL (31-37) Red Cell Distribution Width 14.1 % (11.5-14.5) Platelet Count 261 x10^3/uL (140-400) Neutrophils (%) (Auto) 82 % (31-73) Lymphocytes (%) (Auto) 8 % (24-48) Monocytes (%) (Auto) 10 % (0-9) Eosinophils (%) (Auto) 0 % (0-3) Basophils (%) (Auto) 1 % (0-3) Neutrophils # (Auto) 7.8 x10^3/uL (1.8-7.7) Lymphocytes # (Auto) 0.7 x10^3/uL (1.0-4.8) Monocytes # (Auto) 1.0 x10^3/uL (0.0-1.1) Eosinophils # (Auto) 0.0 x10^3/uL (0.0-0.7) Basophils # (Auto) 0.0 x10^3/uL (0.0-0.2) Sodium Level 141 mmol/L (136-145) Potassium Level 3.9 mmol/L (3.5-5.1) Chloride Level 104 mmol/L (98-107) Carbon Dioxide Level 33 mmol/L (21-32) Anion Gap 4 (6-14) Blood Urea Nitrogen 24 mg/dL (8-26) Creatinine 0.8 mg/dL (0.7-1.3) Estimated GFR (Cockcroft-Gault) 98.9 Glucose Level 101 mg/dL (70-99) Calcium Level 8.3 mg/dL (8.5-10.1) Physical Exam HEENT: Neck Supple W Full Motion Chest: Symmetric LUNGS: Clear to Auscultation Heart: S1S2, RRR (SR) Abdomen: Soft N/T Extremities: No Edema, No Calf Tenderness Neurology: alert, oriented, follow commands Assessment Assessment 1. NSTEMI: peaked at 1.3. Mild CAD 2. COPD with hx of lung CA: in remission. stable. 3. Tobaccoism 4. LE pain: possibly neurogenic, no wounds, palpable DP, will consider for outpt duplex. 5. Arrhythmia: MAT 6. NICM: Takosubo features. EF at 25% compensated. NYHA 1-2 Recommendations 1. ASA indefinitely and plavix for 1 month 2. Low dose lisinopril and toprol. Will uptitrate pending home BP trend 3. Statin 5. Smoking cessation 6. Arrange for lifevest. GDMT for 3 months and will reevaluated need for AICD 7. Cardiac rehab. CHF education. daily wt. KARLI VELARDE MD 05/20/19 1002: CARDIO Progress Notes Assessment Assessment Patient seen and examined on 05/19/19. NSTEMI: peaked at 1.3. Mild CAD on cath. Continue medical treatment. COPD with hx of lung CA: in remission. stable. Nonischemic cardiomyopathy. Ejection fraction at 25%. Continuing Toprol and lisinopril as blood pressure tolerates. We will arrange for LifeVest. Repeat echo in 3 months for possible ICD. Multifocal atrial tachycardia. Rhythm improving. Continue medical treatment as a mckenna. GLENDY BRANDON APRN May 19, 2019 13:52 KARLI VELARDE MD May 20, 2019 10:02
[2019-05-19 14:41] VITALS: BP 119/79
[2019-05-19 19:51] VITALS: BP 115/73
[2019-05-19] MEDS ORDERED: ATORVASTATIN CALCIUM 20 MG TABLET PO SCH (21:00)
[2019-05-19] MEDS ORDERED: ATORVASTATIN CALCIUM 10 MG TABLET. PO SCH (21:00)
[2019-05-19 23:58] VITALS: BP 96/64
[2019-05-20] MEDS: HYDROcodone/APAP 10/325 1 TAB TABLET PO PRN ×5 (01:30→16:56)
[2019-05-20 03:28] VITALS: BP 96/60
[2019-05-20 03:36] LABS: HEMATOCRIT 38.6 % (39.0-53.0); HEMOGLOBIN 12.8 g/dL (13.0-17.5); RED BLOOD COUNT 3.93 x10^6/uL (4.30-5.70); RED CELL DISTRIBUTION WIDTH 13.8 % (11.5-14.5)
[2019-05-20 07:00] VITALS: BP 98/61
--- NOTE | 2019-05-20 08:36 | PDOC ---
Provider Note Provider Note [id number] CARMELA ANGULO MD May 20, 2019 08:36
[2019-05-20] MEDS: ASPIRIN ENTERIC COATED 81 MG TABLET.DR. PO SCH (08:50)
[2019-05-20] MEDS: CLOPIDOGREL BISULFATE 75 MG TABLET PO SCH (08:50)
[2019-05-20] MEDS: METOPROLOL SUCC 24HR ER 25 MG TAB.ER.24H. PO SCH (08:53)
[2019-05-20] MEDS: LISINOPRIL 5 MG TABLET. PO SCH (08:55)
--- NOTE | 2019-05-20 10:10 | DS ---
DATE OF DISCHARGE: 05/20/2019 HOSPITAL SUMMARY: A 58-year-old white male came in with sudden onset of shortness of breath and his chest x-ray and CTA were clear except for residual lung cancer. No sign of DVT or pneumonia or CHF. Troponin was elevated up to 1.05 and then declined down. Chemistry profile and CBC were normal. Flu serology was negative. Cholesterol was low at 136, HDL 52, LDL 69. 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 Lisinopril and low dose metoprolol and Plavix were started as well as atorvastatin and he is stable though his blood pressure runs around 100 with that combination. He has had no more shortness of breath. Oxygen saturations have been good and he will be screened for rehab versus home today. Cardiology is fitting him for a LifeVest and will need to wear that until consideration of AICD later on if his ejection fraction does not improve with treatment. FINAL DIAGNOSES: 1. Nonsystemic ST elevated myocardial infarction. 2. Dilated cardiomyopathy, ejection fraction reduced, severe. 3. Chronic tobacco abuse. 4. History of lung cancer and chronic obstructive pulmonary disease. OPERATIONS AND PROCEDURES: Cardiac catheterization. COMPLICATIONS: None. CONSULTATIONS: Dr. Owens's group. DISPOSITION: Currently, he is taking lisinopril 2.5 mg daily, metoprolol 12.5 mg twice a day, low dose aspirin daily and Plavix 75 mg daily for 1 month. Atorvastatin 10 mg was added as well. Normal diet. Complete cessation of tobacco was discussed again with the patient as this is the source of his main diseases including his lung cancer and heart disease. Prognosis is extremely guarded considering his underlying medical conditions and general poor physical state. CARMELA ANGULO MD DR: AKSHAT/deisi JOB#: [id number] / [id number]
[2019-05-20 11:00] VITALS: BP 101/67
--- NOTE | 2019-05-20 14:44 | PDOC ---
CARDIO Progress Notes Date and Time Date of Service 05/20/2019 Time of Evaluation 1410 Subjective Subjective: No Chest Pain, No shortness of breath, No Palpitations Vitals Vitals Vital Signs Date Time Temp Pulse Resp B/P (MAP) Pulse Ox O2 Delivery O2 Flow Rate FiO2 05/20/19 13:24 99 Nasal Cannula 2.0 05/20/19 11:00 97.3 74 16 101/67 (78) 97.3 Weight Weight [ ] Input and Output Intake and Output Intake and Output 05/20/19 07:00 Intake Total 1280 ml Output Total 1850 ml Balance -570 ml Intake Oral 1280 ml Output Urine Total 1850 ml Laboratory Labs Laboratory Tests Test 05/20/19 03:30 White Blood Count 9.0 x10^3/uL (4.0-11.0) Red Blood Count 3.93 x10^6/uL (4.30-5.70) Hemoglobin 12.8 g/dL (13.0-17.5) Hematocrit 38.6 % (39.0-53.0) Mean Corpuscular Volume 98 fL (79-100) Mean Corpuscular Hemoglobin 33 pg (25-35) Mean Corpuscular Hemoglobin Concent 33 g/dL (31-37) Red Cell Distribution Width 13.8 % (11.5-14.5) Platelet Count 295 x10^3/uL (140-400) Physical Exam HEENT: Neck Supple W Full Motion Chest: Symmetric LUNGS: Clear to Auscultation Heart: S1S2, RRR (SR) Abdomen: Soft N/T Extremities: No Edema, No Calf Tenderness Neurology: alert, oriented, follow commands Assessment Assessment 1. NSTEMI: peaked at 1.3. Mild CAD 2. COPD with hx of lung CA: in remission. stable. 3. Tobaccoism 4. LE pain: possibly neurogenic, no wounds, palpable DP, will consider for outpt duplex. 5. Arrhythmia: MAT 6. NICM: Takosubo features. EF at 25% compensated. NYHA 1-2 Recommendations 1. ASA indefinitely and plavix for 1 month Lasix PRN Rx provided 2. Low dose lisinopril and toprol. 3. Statin 5. Smoking cessation 6. Arrange for lifevest. GDMT for 3 months and will reevaluate need for AICD 7. Cardiac rehab. CHF education. daily wt. 8. Follow up in office GLENDY BRANDON APRN May 20, 2019 14:44
[2019-05-20 15:00] VITALS: BP 97/70
== END 2019-05-20 19:08 | disposition home or self-care (01) | DRG 281 ==
LOC: ER 15:09 → 2 NORTH 17:35
PROVIDERS: ADMIT Family Medicine; ATTEND Family Medicine
PROC: B2111ZZ Fluoroscopy of Multiple Coronary Arteries using Low Osmolar Contrast (ICD-10-PCS; principal; 2019-05-18)
PROC: B2151ZZ Fluoroscopy of Left Heart using Low Osmolar Contrast (ICD-10-PCS; 2019-05-18)
PROC: 4A023N7 Measurement of Cardiac Sampling and Pressure, Left Heart, Percutaneous Approach (ICD-10-PCS; 2019-05-18)
DX: I21.4 Non-ST elevation (NSTEMI) myocardial infarction (principal); I42.0 Dilated cardiomyopathy; I47.1 Supraventricular tachycardia; E78.5 Hyperlipidemia, unspecified; F17.210 Nicotine dependence, cigarettes, uncomplicated; I25.10 Atherosclerotic heart disease of native coronary artery without angina pectoris; G51.0 Bell's palsy; M19.90 Unspecified osteoarthritis, unspecified site; F41.9 Anxiety disorder, unspecified; J44.9 Chronic obstructive pulmonary disease, unspecified; Z82.49 Family history of ischemic heart disease and other diseases of the circulatory system; Z85.118 Personal history of other malignant neoplasm of bronchus and lung; Z92.21 Personal history of antineoplastic chemotherapy; Z92.3 Personal history of irradiation
CPT/HCPCS: 36415; 71046; 71275; 80048; 80053; 80061; 83605; 84145; 84484; 85025; 85027; 85520; 85610; 85730; 87804; 93005; 93306; 93458; 94618; 94640; 96365; 96366; 96375; 99152; 99153; 99285; 99406; C1769; C1892; J1644; J2250; J2270; J2543; J2930; J3010; J3370; J3490; J7030; J7040; J7620; Q9967; G0378

== ENCOUNTER → 2021-05-14 | Outpatient (CLI) | payer MEDICARE ==
[~2021-05-14] MED LIST changes: +VENTOLIN HFA18 GM INH
--- NOTE | 2021-05-14 18:10 | CARD ---
MR#: [id number] Date of Study: 05/14/2021 Ordering Physician: CARMELA ANGULO, Referring Physician: Erica QUIROZ: [facility] APPROVED REPORT EXAM: Two-dimensional and M-mode echocardiogram with Doppler and color Doppler. Other Information Quality : AverageHR: 76bpm Rhythm : NSR INDICATION Cardiomyopathy RISK FACTORS Smoking S/P Lung CA treatment. 2D DIMENSIONS Left Atrium(2D)3.0 (1.6-4.0cm)IVSd0.9 (0.7-1.1cm) Aortic Root(2D)2.9 (2.0-3.7cm)LVDd4.3 (3.9-5.9cm) LVOT Diameter1.8 (1.8-2.4cm)PWd0.9 (0.7-1.1cm) LVDs3.3 (2.5-4.0cm)FS (%) 22.3 % SV36.9 mlLVEF(%)45.3 (>50%) Aortic Valve AoV Peak Amos.127.5cm/sAoV VTI26.2cm AO Peak GR.6.5mmHgLVOT Peak Amos.79.7cm/s AO Mean GR.4mmHgAVA (VMAX)1.55cm2 Mitral Valve MV E Hgbfobzu92.2cm/sMV E Peak Gr.3mmHg MV DECEL [id number] A Iggewpst23.6cm/s MV E Mean Gr.1mmHgE/A Ratio0.6 Pulmonary Valve PV Peak Trfxyzgh74.7cm/s Tricuspid Valve TR P. [id number]/sTR Peak Gr.47mmHg Pulmonary Vein S1 Njureepo66.6cm/sD2 Ccaihask07.8cm/s LEFT VENTRICLE The left ventricle is normal size. There is normal left ventricular wall thickness. The left ventricu lar systolic function is normal. The ejection fraction is estimated at 55-60%. There is normal LV seg mental wall motion. Transmitral Doppler flow pattern is Grade I-abnormal relaxation pattern. No left ventricle thrombus noted on this study. There is no ventricular septal defect visualized. There is no left ventricular aneurysm. There is no mass noted in the left ventricle. RIGHT VENTRICLE The right ventricle is normal size. There is normal right ventricular wall thickness. The right ventr icular systolic function is normal. ATRIA The left atrium size is normal. The right atrium size is normal. The interatrial septum is intact wit h no evidence for an atrial septal defect or patent foramen ovale as noted on 2-D or Doppler imaging. AORTIC VALVE The aortic valve is normal in structure and function. Doppler and Color Flow revealed no significant aortic regurgitation. There is no significant aortic valvular stenosis. There is no aortic valvular v egetation. MITRAL VALVE The mitral valve is normal in structure and function. There is no evidence of mitral valve prolapse. There is no mitral valve stenosis. Doppler and Color Flow revealed no mitral valve regurgitation note d. TRICUSPID VALVE The tricuspid valve leaflets are thickened , but open well. Doppler and Color Flow revealed mild tric uspid regurgitation. The PA pressure was estimated at 50 mmHg. There is no tricuspid valve prolapse o r vegetation. There is no tricuspid valve stenosis. PULMONIC VALVE The pulmonary valve is normal in structure and function. Doppler and Color Flow revealed no pulmonic valvular regurgitation. There is no pulmonic valvular stenosis. GREAT VESSELS The aortic root is normal in size. The ascending aorta is normal in size. The pulmonary artery is nor mal. The IVC is normal in size and collapses >50% with inspiration. PERICARDIAL EFFUSION There is no pleural effusion. There is no evidence of significant pericardial effusion. Critical Notification Critical Value: No <Conclusion> The left ventricular systolic function is normal. The ejection fraction is estimated at 55-60%. There is normal LV segmental wall motion. Transmitral Doppler flow pattern is Grade I-abnormal relaxation pattern. Mild tricuspid regurgitation. The PA pressure was estimated at 50 mmHg. There is no evidence of significant pericardial effusion. Signed by : Charly Elena, Electronically Approved : 05/14/2021 18:10:31
== END ==
LOC: CARD 14:39
PROVIDERS: ATTEND Family Medicine
DX: I07.1 Rheumatic tricuspid insufficiency (principal); I42.0 Dilated cardiomyopathy
CPT/HCPCS: 93306; C8929